=== PATIENT | female | born 1970 | race Caucasian/White ===

== ENCOUNTER 2017-02-09 14:51 | Emergency (ER) | payer OTHER ==
[~2017-02-09] VITALS: Ht 162.6 cm; Wt 65.0 kg
[~2017-02-09 14:51] MED LIST: ADVA250A INH; ALBU1AER INH; CEPH500C3 PO; HYDR-3533 PO; METO25 PO; PRED-1 PO
[2017-02-09 14:57] VITALS: BP 98/51; PULSE 82; RESP 20; TEMP 97.8; O2SAT 97
[2017-02-09] MEDS ORDERED: SODIUM CHLOR 0.9% 1000 ML INJ 1,000 ML IV SCH (15:36)
--- NOTE | 2017-02-09 15:38 | PD ---
HPI Chief Complaint: Abdominal Pain Time Seen by Provider: 15:38 Travel History International Travel<30 days: No Contact w/Intl Traveler<30days: No Traveled to known affect area: No History of Present Illness HPI 46-year-old female with history of severe asthma, ventricular tachycardia, valve placement, cholecystectomy, presents to emergency department today for evaluation a right upper quadrant pain that radiates to her back. Patient states that this has been intermittent for an extended amount of time but began to worsen over the last 2 days with nausea and vomiting today. Patient states the pain is similar to when she needed her gallbladder removed. Patient states she has been dealing with her asthma exacerbating lately but has been without fever or chills.. States the pain is a constant, stabbing, exacerbated with movement or touch. Denies any bowel changes. No urinary symptoms. No other symptoms to report. PFSH Past Medical History Cancer: No Cardiac Catheterization: Yes Cardiovascular Problems: Yes (ENLARGED HEART, BORN WITH HOLE IN HEART) Diabetes: No Hepatitis: No Hiatal Hernia: No Respiratory: Yes (ASTHMA) Thyroid Disease: No ?: Not : 3 Para: 2 Past Surgical History Cardiac Surgery: Yes (cardioCELE implant age 28) Cholecystectomy: Yes (2011) Other Surgery: Yes (mitral valve 2014,ASD 1998) Social History Alcohol Use: Yes Tobacco Use: No Substance Use: No Allergies-Medications (Allergen,Severity, Reaction): Coded Allergies: Shellfish (Verified Allergy, Severe, ANAPHALAXIS, 02/09/17) Reported Meds & Prescriptions Reported Meds & Active Scripts Active Keflex (Cephalexin) 500 Mg Cap 500 Mg PO Q12H 7 Days Phenergan (Promethazine HCl) 25 Mg Tab 25 Mg PO Q6H PRN Reported Lasix (Furosemide) 20 Mg Tab 20 Mg PO DAILY 7 Days Duoneb (Ipratropium-Albuterol Neb) 0.5-2.5 Mg/3 Ml Neb 1 Vial NEB Q6HR PRN Ambien (Zolpidem Tartrate) 5 Mg Tab 5 Mg PO HS PRN Aspirin Adult Low Strength (Aspirin) 81 Mg Tabdr 81 Mg PO DAILY Lisinopril 2.5 Mg Tab 2.5 Mg PO DAILY Bystolic (Nebivolol) 5 Mg Tab 5 Mg PO DAILY Singulair (Montelukast Sodium) 10 Mg Tab 10 Mg PO HS Spiriva Handihaler (Tiotropium Inh) 18 Mcg Cap 2 Puff INH DAILY 1 capsule = 18 mcg Proair Hfa 8.5 GM Inh (Albuterol Sulfate) 90 Mcg/Act Aer 2 Puff INH Q4-6H PRN 108 mcg/actuation Advair Diskus Inh (Fluticasone-Salmeterol Inh) 250-50 Mcg/Blist Aer 1 Puff INH BID Rinse mouth after use. Review of Systems Except as stated in HPI: all other systems reviewed are Neg Physical Exam Narrative GENERAL: Well-nourished female patient, in no acute distress. SKIN: Warm and dry. HEAD: Atraumatic. Normocephalic. EYES: Pupils equal and round. No scleral icterus. No injection or drainage. ENT: No nasal bleeding or discharge. Mucous membranes pink and moist. NECK: Trachea midline. No JVD. CARDIOVASCULAR: Regular rate and rhythm. No murmur appreciated. RESPIRATORY: No accessory muscle use. Clear to auscultation. Breath sounds equal bilaterally. GASTROINTESTINAL: Abdomen soft, nondistended. Tenderness elicited to palpation epigastric and right upper quadrant region. No rebound tenderness. No guarding. Hepatic and splenic margins not palpable. MUSCULOSKELETAL: No obvious deformities. No clubbing. No cyanosis. No edema. NEUROLOGICAL: Awake and alert. No obvious cranial nerve deficits. Motor grossly within normal limits. Normal speech. PSYCHIATRIC: Appropriate mood and affect; insight and judgment normal. Data Data Last Documented VS Vital Signs Date Time Temp Pulse Resp B/P Pulse Ox O2 Delivery O2 Flow Rate FiO2 02/09/17 18:00 74 19 107/72 97 Room Air 02/09/17 14:57 97.8 Orders Complete Blood Count With Diff (02/09/17 15:36) Comprehensive Metabolic Panel (02/09/17 15:36) Prothrombin Time / Inr (Pt) (02/09/17 15:36) Act Partial Throm Time (Ptt) (02/09/17 15:36) Urinalysis - C+S If Indicated (02/09/17 15:36) Ct Abd/Pel W Iv Contrast(Rout) (02/09/17 15:36) Iv Access Insert/Monitor (02/09/17 15:36) Ecg Monitoring (02/09/17 15:36) Oximetry (02/09/17 15:36) Ondansetron Inj (Zofran Inj) (02/09/17 15:45) Sodium Chlor 0.9% 1000 Ml Inj (Ns 1000 M (02/09/17 15:36) Sodium Chloride 0.9% Flush (Ns Flush) (02/09/17 15:45) Electrocardiogram (02/09/17 15:36) Chest, Single Ap (02/09/17 15:36) Ketorolac Inj (Toradol Inj) (02/09/17 15:45) Ed Urine Pregnancytest Poc (02/09/17 15:36) Ckmb (Isoenzyme) Profile (02/09/17 15:36) Troponin I (02/09/17 15:36) Lipase (02/09/17 15:36) Urine Culture (02/09/17 16:00) Iohexol 350 Inj (Omnipaque 350 Inj) (02/09/17 17:20) Labs Laboratory Tests Test 02/09/17 02/09/17 15:50 16:00 White Blood Count 14.3 TH/MM3 Red Blood Count 4.28 MIL/MM3 Hemoglobin 12.7 GM/DL Hematocrit 37.7 % Mean Corpuscular Volume 88.2 FL Mean Corpuscular Hemoglobin 29.8 PG Mean Corpuscular Hemoglobin 33.8 % Concent Red Cell Distribution Width 13.3 % Platelet Count 330 TH/MM3 Mean Platelet Volume 7.9 FL Neutrophils (%) (Auto) 70.7 % Lymphocytes (%) (Auto) 16.1 % Monocytes (%) (Auto) 9.3 % Eosinophils (%) (Auto) 2.9 % Basophils (%) (Auto) 1.0 % Neutrophils # (Auto) 10.1 TH/MM3 Lymphocytes # (Auto) 2.3 TH/MM3 Monocytes # (Auto) 1.3 TH/MM3 Eosinophils # (Auto) 0.4 TH/MM3 Basophils # (Auto) 0.1 TH/MM3 CBC Comment DIFF FINAL Differential Comment Prothrombin Time 10.4 SEC Prothromb Time International 0.9 RATIO Ratio Activated Partial 25.2 SEC Thromboplast Time Sodium Level 137 MEQ/L Potassium Level 3.7 MEQ/L Chloride Level 105 MEQ/L Carbon Dioxide Level 21.5 MEQ/L Anion Gap 11 MEQ/L Blood Urea Nitrogen 14 MG/DL Creatinine 0.96 MG/DL Estimat Glomerular Filtration 63 ML/MIN Rate Random Glucose 93 MG/DL Calcium Level 8.7 MG/DL Total Bilirubin 0.3 MG/DL Aspartate Amino Transf 11 U/L (AST/SGOT) Alanine Aminotransferase 20 U/L (ALT/SGPT) Alkaline Phosphatase 83 U/L Total Creatine Kinase 34 U/L Troponin I LESS THAN 0.02 NG/ML Total Protein 7.4 GM/DL Albumin 3.7 GM/DL Lipase 132 U/L Urine Color YELLOW Urine Turbidity HAZY Urine pH 6.0 Urine Specific [place] 1.013 Urine Protein TRACE mg/dL Urine Glucose (UA) NEG mg/dL Urine Ketones NEG mg/dL Urine Occult Blood SMALL Urine Nitrite NEG Urine Bilirubin NEG Urine Urobilinogen LESS THAN 2.0 MG/DL Urine Leukocyte Esterase MOD Urine RBC 3 /hpf Urine WBC 8 /hpf Urine WBC Clumps RARE Urine Squamous Epithelial 8 /hpf Cells Urine Bacteria RARE /hpf Urine Hyaline Casts 5 /lpf Urine White Blood Cell Casts 1 /lpf Urine Mucus FEW /lpf Microscopic Urinalysis Comment CULTURE INDICATED MDM Medical Decision Making Medical Screen Exam Complete: Yes Emergency Medical Condition: Yes Medical Record Reviewed: Yes Differential Diagnosis Biliary colic versus psoriasis versus pyelonephritis versus liver disease Narrative Course 46 year-old female presents [facility] department for evaluation right upper quadrant pain, similar to the pain prior to her cholecystectomy. CBC is with mild leukocytosis of 14.3, likely due to vomiting. CMP is without acute concern. Troponin is less than 0.02. Urinalysis is hazy with small occult blood, moderate leukocyte esterase, 8 WBCs, rare WBC clumps, rare bacteria, few mucus, culture is indicated. Chest x-ray shows valvular prosthesis. No acute cardiac pulmonary process. CT imaging of the abdomen and pelvis shows a 1.9 left ovarian cyst with a small amount of free pelvic fluid. This is within the range of physiologic for a female of menstruation age. Patient is status post cholecystectomy. Appendix is not visualized however patient denies any appendicitis. Otherwise no acute intra-or shallow pelvic process to explain patient's right sided abdominal pain. Findings are reviewed with the patient. She has been without vomiting since she has been in the emergency department and given antiemetic. She'll be discharged home to follow-up with primary care provider. She agrees to return immediately with any acute worsening symptoms. Diagnosis Primary Impression: Right upper quadrant abdominal pain Additional Impressions: Nausea & vomiting Qualified Code: R11.2 - Nausea and vomiting, intractability of vomiting not specified, unspecified vomiting type UTI (urinary tract infection) Qualified Code: N39.0 - Urinary tract infection without hematuria, site unspecified Referrals: Primary Care Physician Patient Instructions: Abdominal Pain (ED), General Instructions, Urinary Tract Infection in Women (ED) Additional Instructions: Maintain adequate oral hydration Follow up your primary care provider Seek gastroenterology evaluation Clear liquid diet; advance as tolerated Return immediately with any acute worsening of symptoms Med/Other Pt SpecificInfo: Prescription(s) given Scripts Cephalexin (Keflex)500 Mg Rhb000 Mg PO Q12H 7 Days Ref 0 Prov:Mayda Najera 02/09/17 Promethazine (Phenergan)25 Mg Tab25 Mg PO Q6H PRN (Nausea/Vomiting) #15 TAB Ref 0 Prov:Mayda Najera 02/09/17 Disposition: 01 DISCHARGE HOME Condition: Stable Mayda Najera Feb 09, 2017 15:38
[2017-02-09] MEDS ORDERED: KETOROLAC TROMETHAMINE 30 MG/ML (IVP) VIAL IVP ONE (15:45)
[2017-02-09] MEDS ORDERED: ONDANSETRON HCL 4 MG/2 ML VIAL IVP ONE (15:45)
[2017-02-09] MEDS ORDERED: SODIUM CHLORIDE 0.9% FLUSH 10 ML FLUSH IV FLUSH PRN (15:45)
[2017-02-09 15:48] VITALS: O2SAT 98
[2017-02-09 15:50] VITALS: BP 90/54; PULSE 80; RESP 18; O2SAT 97
[2017-02-09] MEDS ORDERED: IPRASOL NEB (16:04)
[2017-02-09] MEDS ORDERED: MONT10TA2 PO (16:04)
[2017-02-09] MEDS ORDERED: ADVA250A INH (16:04)
[2017-02-09] MEDS ORDERED: ALBUAER3 INH (16:04)
[2017-02-09] MEDS ORDERED: SPIRCAP INH (16:04)
[2017-02-09] MEDS ORDERED: LISI2.5T3 PO (16:04)
[2017-02-09] MEDS ORDERED: ASPI1TAB91 PO (16:04)
[2017-02-09] MEDS ORDERED: AMBI5TAB PO (16:04)
[2017-02-09] MEDS ORDERED: BYST5TAB2 PO (16:04)
[2017-02-09] MEDS ORDERED: FURO1TAB62 PO (16:05)
--- NOTE | 2017-02-09 16:10 | RADRPT ---
EXAM DATE/TIME: 02/09/2017 15:51 [facility] COMPARISON: No previous studies available for comparison. INDICATIONS : Free air. Abdominal pain, nausea, and vomitting. MEDICAL HISTORY : None. SURGICAL HISTORY : Cholecystectomy. ENCOUNTER: Initial ACUITY: 1 day PAIN SCORE: 8/10 LOCATION: Bilateral chest FINDINGS: A single view of the chest demonstrates the lungs to be symmetrically aerated without evidence of mas s, infiltrate or effusion. The cardiomediastinal contours are unremarkable. Findings of a valvular prostheses. Osseous structures are intact. CONCLUSION: Valvular prostheses. No acute cardiopulmonary process. Shivam Rodriguez MD on February 09, 2017 at 16:08 Board Certified Radiologist. This report was verified electronically.
[2017-02-09 16:21] LABS: AUTOMATED NEUTROPHIL # 10.1 TH/MM3 (1.8-7.7); BASOPHIL # 0.1 TH/MM3 (0-0.2); EOSINOPHIL # 0.4 TH/MM3 (0-0.4); EOSINOPHIL % 2.9 % (0.0-4.0); HEMATOCRIT 37.7 % (35.0-46.0); HEMO FLAGS DIFF FINAL; LYMPH % 16.1 % (9.0-44.0); LYMPHOCYTE # 2.3 TH/MM3 (1.0-4.8); MEAN CELL VOLUME 88.2 FL (80.0-100.0); MEAN CORPUSCULAR HEMOGLOBIN 29.8 PG (27.0-34.0); MEAN CORPUSCULAR HGB CONC 33.8 % (32.0-36.0); MONO % 9.3 % (0.0-8.0); NEUT % 70.7 % (16.0-70.0); PLATELET COUNT 330 TH/MM3 (150-450); RED BLOOD COUNT 4.28 MIL/MM3 (4.00-5.30); RED CELL DISTRIBUTION WIDTH 13.3 % (11.6-17.2); WHITE BLOOD COUNT 14.3 TH/MM3 (4.0-11.0)
[2017-02-09 16:31] LABS: ALT (GPT) 20 U/L (10-53); ANION GAP 11 MEQ/L (5-15); AST (GOT) 11 U/L (15-37); BICARBONATE 21.5 MEQ/L (21.0-32.0); BLOOD UREA NITROGEN 14 MG/DL (7-18); CHLORIDE 105 MEQ/L (98-107); GLOMERULAR FILTRATION RATE 63 ML/MIN (>89); POTASSIUM 3.7 MEQ/L (3.5-5.1); SODIUM (NA) 137 MEQ/L (136-145)
[2017-02-09 16:32] LABS: BACTERIA, URINE RARE /hpf; BLOOD, URINE SMALL (NEG); COMMENT (UR) CULTURE INDICATED; CULTURE IF INDICATED CULTURE INDICATED; GLUCOSE,URINE NEG (NEG); HYALINE CAST, URINE 5 /lpf (RARE); KETONE, URINE NEG (NEG); MUCUS URINE FEW /lpf (OCC); NITRITE,URINE NEG (NEG); SQUAMOUS EPITHELIAL CELL URINE 8 /hpf (0-5); URINE COLOR YELLOW (YELLW/STRAW); WHITE BLOOD CELL CAST, URINE 1 /lpf
[2017-02-09 16:33] LABS: APTT (PATIENT) 25.2 SEC (24.3-30.1); INTERNATIONAL NORMALIZED RATIO 0.9 RATIO; PROTHROMBIN TIME - PATIENT 10.4 SEC (9.8-11.6)
[2017-02-09 16:34] LABS: ALKALINE PHOSPHATASE 83 U/L (45-117); TOTAL BILIRUBIN ADULT 0.3 MG/DL (0.2-1.0)
[2017-02-09 16:35] LABS: CREATINE KINASE 34 U/L (26-192)
[2017-02-09 17:00] VITALS: BP 99/66; PULSE 74; RESP 18; O2SAT 98
[2017-02-09] MEDS ORDERED: IOHEXOL 350 MG/ML 10 ML VIAL (for RAD DIAG) IV ONE (17:20)
--- NOTE | 2017-02-09 17:29 | RADRPT ---
EXAM DATE/TIME: 02/09/2017 17:13 [facility] COMPARISON: CT ABDOMEN & PELVIS W CONTRAST, April 29, 2015, 18:42. INDICATIONS : Right lower and upper qaudrant pain. IV CONTRAST: 98 cc Omnipaque 350 (iohexol) IV ORAL CONTRAST: No oral contrast ingested. RADIATION DOSE: 8.18 CTDIvol (mGy) MEDICAL HISTORY : Cardiovascular disease. Mitral valve replacement SURGICAL HISTORY : Cholecystectomy. ENCOUNTER: Initial ACUITY: 1 day PAIN SCALE: 7/10 LOCATION: Right upper quadrant lower qaudrant TECHNIQUE: Volumetric scanning of the abdomen and pelvis was performed. Using automated exposure control and ad justment of the mA and/or kV according to patient size, radiation dose was kept as low as reasonably achievable to obtain optimal diagnostic quality images. FINDINGS: LOWER LUNGS: The visualized lower lungs are clear. LIVER: Homogeneous density without lesion. There is no dilation of the biliary tree. Patient is status post cholecystectomy. SPLEEN: Normal size without lesion. PANCREAS: Within normal limits. KIDNEYS: Normal in size and shape. There is no mass, stone or hydronephrosis. ADRENAL GLANDS: Within normal limits. VASCULAR: There is no aortic aneurysm. BOWEL/MESENTERY: The stomach, small bowel, and colon demonstrate no acute abnormality. There is no free intraperitone al air or fluid. The vermiform appendix is not clearly identified. ABDOMINAL WALL: Within normal limits. RETROPERITONEUM: There is no lymphadenopathy. BLADDER: No wall thickening or mass. REPRODUCTIVE: 1.9 cm left ovarian cyst with a small amount of fluid adjacent to the ovary and posterior to the uter us. INGUINAL: There is no lymphadenopathy or hernia. MUSCULOSKELETAL: Within normal limits for patient age. CONCLUSION: 1. A 1.9 cm left ovarian cyst with a small amount of free pelvic fluid. This is within the range of p hysiologic for a menstruating female. 2. Patient is status post cholecystectomy. I do not see the appendix. Has the patient had an appendec akil as well? 3. Otherwise, no acute intraperitoneal or pelvic process to explain patient's right-sided abdominal p hari Rodriguez MD on February 09, 2017 at 17:22 Board Certified Radiologist. This report was verified electronically.
[2017-02-09] MEDS ORDERED: PROM25TA5 PO (17:59)
[2017-02-09 18:00] VITALS: BP 107/72; PULSE 74; RESP 19; O2SAT 97
[2017-02-09] MEDS ORDERED: CEPH-460 PO (18:02)
--- NOTE | 2017-02-10 14:52 | EKG ---
Date Performed: 02/09/2017 Time Performed: 16:09:44 PTAGE: 46 years EKG: Sinus rhythm NONSPECIFIC T-WAVE ABNORMALITY BORDERLINE ECG INTERPRETATION BASED ON A DEFAULT AGE OF 41 YEARS NO PREVIOUS TRACING DOCTOR: Carlos Carrasquillo Interpretating Date/Time 02/10/2017 14:43:07
== END 2017-02-09 18:29 | disposition home or self-care (01) ==
LOC: NEPE 14:51
DX: R10.11 Right upper quadrant pain (principal); R11.2 Nausea with vomiting, unspecified; N39.0 Urinary tract infection, site not specified; R94.31 Abnormal electrocardiogram [ECG] [EKG]; Z87.09 Personal history of other diseases of the respiratory system; Z86.79 Personal history of other diseases of the circulatory system
CPT/HCPCS: 71010; 74177; 80053; 81001; 82550; 83690; 84484; 84703; 85025; 85610; 85730; 87086; 93005; 96361; 96374; 96375; 99284; J1885; J2405; J7030; Q9967

== ENCOUNTER → 2017-08-11 | Day surgery (SDC) | payer OTHER ==
[~2017-08-11] VITALS: Ht 162.6 cm; Wt 68.8 kg
[~2017-08-11] MED LIST changes: -ALBU1AER INH; +ALBUAER3 INH; +AMBI5TAB PO; +ASPI1TAB91 PO; +BYST5TAB2 PO; +CEPH-460 PO; -CEPH500C3 PO; +CHLORHEXIDINE GLUCONATE 2 % 1 PACK (2 CLOTHS) TOPICAL PRN; +DO NOT ADM ANY ANTICOAGULANT DRUGS PRN; +FAMOTIDINE 20 MG/2 ML VIAL ONE; +FURO1TAB62 PO; -HYDR-3533 PO; +INSULIN HUMAN REGULAR 1,000 UNITS/10 ML VIAL SQ PRN; +IPRASOL NEB; +KETOROLAC TROMETHAMINE 30 MG/ML (IVP) VIAL IV PUSH ONE; +LACTATED RINGER'S 1000 ML IV PRN; +LISI2.5T3 PO; +MEDR10TA7 PO; -METO25 PO; +METOPROLOL TARTRATE 25 MG TAB PO PRN; +MIDAZOLAM HCL 2 MG/2 ML VIAL IV ONE; +MONT10TA2 PO; +ONDANSETRON HCL 4 MG/2 ML VIAL IV PUSH ONE; +PHENYLEPH/NS 1000 MCG/10 ML SYR IV ONE; +POVIDONE IODINE 5% (ANTISEPSIS KIT) 4 APPLICATIONS EACH NARE PRN; -PRED-1 PO; +PROM25TA10 PO; +PROPOFOL 200 MG/20 ML AMP IV ONE; +SODIUM CHLORID 0.9% 500 ML IV PRN; +SPIRCAP INH; +ceFAZolin 1,000 MG/NS 100 ML IV SCH; +oxyCODONE/ACETAMINOPHEN 5 MG/325 MG TAB ONE; +oxyCODONE/ACETAMINOPHEN 5 MG/325 MG TAB PO PRN
--- NOTE | 2017-08-11 11:53 | PD.OP ---
Operative Report Date of Surgery: Aug 11, 2017 Preoperative Diagnosis: (1) Excessive bleeding in premenopausal period (2) Adenomyosis (3) Iron deficiency anemia due to chronic blood loss (4) Pelvic and perineal pain Postoperative Diagnosis: (1) Excessive bleeding in premenopausal period (2) Adenomyosis (3) Iron deficiency anemia due to chronic blood loss (4) Endometrial polyp (5) Pelvic and perineal pain Procedure: 1. hysteroscopy 2. Polypectomy 3. D&C 4. endometrial ablation with Novasure Anesthesia: INA Surgeon: Keren Stephen Avionics Manager(s): OR staff Operation and Findings: IVF: 550 ml LR + IV antibiotics UO: 50 ml EBL: < 15 ml Findings: two endometrial polyps noted Specimens: endometrial polyps + endometrial curettings Complications: none Condition: stable Disposition: PACU Description of the procedure: The risks, benefits and alternatives of the procedure were discussed with the patient. Her questions were answered. The patient signed informed consent and wished to proceed. She was taken to the operating room with her IV running. She was placed in the supine position and was given light sedation without difficulties or complications. The patient was placed in the dorsal lithotomy position and was prepped and draped in the usual sterile fashion. A bivalve speculum was introduced inside the patient's vagina. The anterior aspect of the cervix was grasped with a single tooth tenaculum for manipulation. The cervix was carefully dilated; the uterus sounded to 9 cm and the cervix was measured to 3 cm. A 5 mm Myosure hysteroscope was introduced inside the patient's uterus. The cavity was noted to have a couple of endometrial polyps. A careful curettage was done with a sharp curet. The tissues were sent to pathology. Endometrial ablation was done following NovaSure protocol without any difficulties or complications (settings : width 4.5, length 6 cm, power 149). All the instruments were removed from the patient's uterus. All the instruments were removed from the patient's vagina. She tolerated the procedure well; she was successfully awaken from sedation and was transferred to PACU in stable condition. Note: I discussed the surgical findings and surgical procedures with patient's . His questions were answered. He verbalized understanding and agreement to the procedures done. Keren Stephen MD Aug 11, 2017 11:53
[2017-08-11 15:10] LABS: BETA HCG QUANT LESS THAN 1 MIU/ML (0-5)
[2017-08-11 18:05] VITALS: BP 120/76; PULSE 80; RESP 18; TEMP 97.7; O2SAT 99
--- NOTE | 2017-08-12 16:52 | EKG ---
Date Performed: 08/11/2017 Time Performed: 14:22:27 PTAGE: 47 years EKG: Sinus rhythm NONSPECIFIC T-WAVE ABNORMALITY BORDERLINE ECG Since PREVIOUS TRACING , no significant change noted PREVIOUS TRACIN02/09/2017 16.09 DOCTOR: Pretty Garcia Interpretating Date/Time 08/12/2017 16:51:09
== END | disposition home or self-care (01) ==
LOC: HSDC 13:30
PROVIDERS: ATTEND Obstetrics & Gynecology
DX: N80.0 Endometriosis of uterus (principal); N84.0 Polyp of corpus uteri; N93.9 Abnormal uterine and vaginal bleeding, unspecified; N92.4 Excessive bleeding in the premenopausal period; D50.0 Iron deficiency anemia secondary to blood loss (chronic); R94.31 Abnormal electrocardiogram [ECG] [EKG]
CPT/HCPCS: 00952; 58563; 84702; 88305; 93005; J1885; J2250; J2370; J2405; J3010; J7120